=== PATIENT | female | born 1985 | race Hispanic/Latino ===

== ENCOUNTER → 2016-12-22 | Outpatient (REF) | payer OTHER | LOC: M SFHCLERA 12:45 | PROVIDERS: ATTEND Nurse Practitioner Family | DX: R30.0 Dysuria (principal) ==

== ENCOUNTER → 2018-07-20 | Outpatient (REF) | payer OTHER | LOC: M SFHCLERA 10:33 | DX: N39.0 Urinary tract infection, site not specified (principal) | CPT/HCPCS: 87186 ==